=== PATIENT | female | born 1960 | race Caucasian/White ===

== ENCOUNTER 2017-03-08 09:03 | Emergency (ER) | payer OTHER ==
[~2017-03-08] VITALS: Ht 172.7 cm; Wt 61.2 kg
[~2017-03-08 09:03] MED LIST: AMBIEN 5 MG TABL5 M1 PO; DOXYCYCLINE 10100 MG PO; IBUPROFEN 800800 M1 PO; KEPPRA 500 MG500 M1 PO; KEPPRA1000 MG PO; KLONOPIN0.5 MG PO; MACROBID 100 M100 M1 PO; MOBIC7.5 MG PO; NEURONTIN 300300 M1 PO; NORCO 5-325 TA1 EACH PO; PERCOCET 5-3251 EACH PO; TRAZODONE HCL100 MG PO; VISTARIL 25 MG25 M1 PO; ZOLOFT25 MG PO
[2017-03-08] MEDS ORDERED: CIPROFLOXIN HC2.5 M1 OPHTHALMIC (10:57)
[2017-03-08] MEDS ORDERED: BLEPH-105 ML OPHTHALMIC (11:06)
[2017-03-08 11:48] VITALS: BP 134/78
== END 2017-03-08 11:50 | disposition home or self-care (01) ==
LOC: ER 09:03
DX: H10.89 Other conjunctivitis (principal); Z86.73 Personal history of transient ischemic attack (TIA), and cerebral infarction without residual deficits; F41.9 Anxiety disorder, unspecified; G89.29 Other chronic pain; F17.210 Nicotine dependence, cigarettes, uncomplicated; M32.9 Systemic lupus erythematosus, unspecified; Z98.890 Other specified postprocedural states; Z91.012 Allergy to eggs; Z91.011 Allergy to milk products; Z88.8 Allergy status to other drugs, medicaments and biological substances

== ENCOUNTER 2019-02-24 14:12 | Emergency (ER) | payer OTHER ==
[~2019-02-24] VITALS: Ht 170.2 cm; Wt 68.0 kg
[~2019-02-24 14:12] MED LIST changes: +BLEPH-105 ML OPHTHALMIC; +CIPROFLOXIN HC2.5 M1 OPHTHALMIC
[2019-02-24 14:15] VITALS: BP 127/79
[2019-02-24] MEDS ORDERED: IBUPROFEN 600600 M1 PO (14:42)
== END 2019-02-24 14:55 | disposition home or self-care (01) ==
LOC: ER 14:12
DX: T22.111A Burn of first degree of right forearm, initial encounter (principal); T31.0 Burns involving less than 10% of body surface; M32.9 Systemic lupus erythematosus, unspecified; F41.9 Anxiety disorder, unspecified; G89.29 Other chronic pain; F17.210 Nicotine dependence, cigarettes, uncomplicated; Z91.012 Allergy to eggs; Z90.49 Acquired absence of other specified parts of digestive tract; Z86.73 Personal history of transient ischemic attack (TIA), and cerebral infarction without residual deficits; Z91.011 Allergy to milk products; Z88.8 Allergy status to other drugs, medicaments and biological substances; X12.XXXA Contact with other hot fluids, initial encounter; Y93.89 Activity, other specified; Y92.89 Other specified places as the place of occurrence of the external cause; Y99.8 Other external cause status